=== PATIENT | female | born 1960 | race Hispanic/Latino ===

== ENCOUNTER 2019-01-30 22:23 | Inpatient (IN) | payer BC, OTHER ==
[2019-01-31] MEDS ORDERED: ANTIVERT PO ONE (00:10)
[2019-01-31] MEDS ORDERED: NACL 0.9% 500 ML 500 ML IV ONE (00:10)
[2019-01-31] MEDS ORDERED: REGLAN IV ONE (00:10)
--- NOTE | 2019-01-31 00:17 | Emergency Department Report ---
ED Neuro Deficit HPI - General Chief Complaint: Dizziness Stated Complaint: DIZZINESS/HIGH BP Time Seen by Provider: 01/31/19 00:00 Source: patient, RN notes reviewed Mode of arrival: Ambulatory Limitations: No Limitations - History of Present Illness Initial Comments: Primary care DrSotero: Dr. Alvarado This is a 58-year-old female. The patient is not known to this provider previously. She endorses a history of corneal dysplasia. The patient presents to the emergency room with the complaint of nontraumatic right-sided temporal headache, starting at 9:15 PM, accompanied by sensation of room spinning, constant, which decreases when looking forward, nontraumatic right-sided neck pain, nontraumatic resolve left-sided facial numbness, nontraumatic resolve left arm weakness. The symptoms have been going on since 9:15 p.m. 01/30/2019. The headache is throbbing and aching. The headache is not sudden or thunderclap in nature. The patient states the headache is not the most intense headache of her life. The patient reports no recent chiropractic manipulation, or automotive accident. She denies tinnitus, and denies change in auditory acuity. She currently denies focal extremity weakness, numbness. She reports that her dizziness feels like "vertigo." Location: other Presenting Symptoms: Present: Weak/Paralyzed One Side, Facial Droop/Numbness. Absent: Sudden, Severe Headache, Blurred/Loss of Vision, Unable to Speak Clearly, Altered Mental Status History of same: No Place: home Severity: severe Quality: other Improves With: other Worsens With: other On Anticoagulants: No Context: sudden onset - Related Data Home Medications: Home Medications Medication Instructions Recorded Confirmed Last Taken cycloSPORINE [Restasis] 1 drop OS BID 01/31/19 01/31/19 Unknown Previous Rx's Medication Instructions Recorded Last Taken Type AtorvaSTATin [Lipitor] 40 mg PO QHS #30 tab 02/01/19 Unknown Rx Allergies/Adverse Reactions: Allergies Allergy/AdvReac Type Severity Reaction Status Date / Time morphine Allergy Itching Verified 03/17/15 14:44 NSAIDS (Non-Steroidal Allergy Unknown Verified 03/17/15 14:44 Anti-Inflamma ED Review of Systems ROS: Stated complaint: DIZZINESS/HIGH BP Other details as noted in HPI Constitutional: malaise. denies: fever Eyes: denies: vision change ENT: denies: hearing loss Respiratory: denies: cough Cardiovascular: denies: chest pain Gastrointestinal: nausea Genitourinary: denies: dysuria Musculoskeletal: denies: back pain Neurological: headache, weakness, numbness, paresthesias Psychiatric: anxiety ED Past Medical Hx - Past Medical History Additional medical history: Gastric polyps - Surgical History Hx Cholecystectomy: Yes Additional Surgical History: Right knee micro fx repair. x3. hysterectomy - Social History Smoking Status: Never Smoker Substance Use Type: None - Medications Home Medications: Home Medications Medication Instructions Recorded Confirmed Last Taken Type cycloSPORINE [Restasis] 1 drop OS BID 01/31/19 01/31/19 Unknown History AtorvaSTATin [Lipitor] 40 mg PO QHS #30 tab 02/01/19 Unknown Rx ED Neuro Physical Exam - General Limitations: No Limitations General appearance: alert, in no apparent distress Suspected Stroke: No - Head Head exam: Present: atraumatic, normocephalic - Eye Eye exam: Present: normal appearance, PERRL, EOMI, other (visual acuity intact to finger counting, color perception, reading at a close distance). Absent: nystagmus - ENT ENT exam: Present: normal exam, normal orophraynx, mucous membranes moist, TM's normal bilaterally, normal external ear exam - Neck Neck exam: Present: normal inspection, full ROM. Absent: tenderness, meningismus - Respiratory Respiratory exam: Present: normal lung sounds bilaterally. Absent: respiratory distress - Cardiovascular Cardiovascular Exam: Present: regular rate, normal rhythm, normal heart sounds. Absent: bradycardia, tachycardia, irregular rhythm, systolic murmur, diastolic murmur, rubs, gallop - GI/Abdominal GI/Abdominal exam: Present: soft. Absent: distended, tenderness, guarding, rebound, rigid, pulsatile mass - Extremities Exam Extremities exam: Present: normal inspection, full ROM, other (2+ pulses noted in the bilateral upper, lower extremities. Compartments soft. No long bony tenderness. The pelvis is stable.). Absent: pedal edema, joint swelling, calf tenderness - Back Exam Back exam: Present: normal inspection, full ROM. Absent: tenderness, CVA tenderness (R), CVA tenderness (L), paraspinal tenderness, vertebral tenderness - Neurological Exam Neurological exam: Present: alert, oriented X3, other (Extraocular movements intact. Tongue midline. No facial droop. Facial sensation intact to light touch in the V1, V2, V3 distribution bilaterally. 5 and 5 strength in 4 extremities.. Sensation is intact to light touch in 4 extremities.). Absent: motor sensory deficit - NIHSS Assessment Interval: Baseline 1a. Level of Consciousness: alert/keenly responsive 1b. LOC Questions: answers both correctly 1c. LOC Commands: performs tasks correctly 2. Best Gaze: normal 3. Visual: no visual loss 4. Facial Palsy: normal symmetrical movement 5b. Motor Arm Right: no drift 5a. Motor Arm Left: no drift 6a. Motor Leg Left: no drift 6b. Motor Leg Right: no drift 7. Limb Ataxia: absent 8. Sensory: normal 9. Best Language: no aphasia 10. Dysarthria: normal 11. Extinction/Inattention: no abnormality Total Score: 0 Stroke Severity: No Stroke Symptoms - Psychiatric Psychiatric exam: Present: anxious, flat affect - Skin Skin exam: Present: warm, dry, intact, normal color. Absent: rash ED Course Vital Signs 01/31/19 01/31/19 01/31/19 01:00 01:03 02:00 Temperature 98.2 F Pulse Rate 59 L 57 L 55 L Respiratory 14 16 12 Rate Blood Pressure 153/74 129/65 Blood Pressure 147/69 [Left] O2 Sat by Pulse 97 100 98 Oximetry 01/31/19 03:01 Temperature Pulse Rate 48 L Respiratory 12 Rate Blood Pressure 126/60 Blood Pressure [Left] O2 Sat by Pulse 99 Oximetry - Reevaluation(s) Reevaluation #1: 01/31/19 00:40 Differential diagnosis, including not limited to: Complex migraine, peripheral vestibulopathy, carotid dissection, carotid occlusion, stroke, partial seizure Assessment and plan: 58-year-old female with sensation of room spinning, resolved left arm weakness, resolved left-sided facial numbness, nontraumatic right-sided neck pain, NIH score of 0. Patient will be processed and evaluated as a potential code stroke. Given current NIH score of 0, not a TPA candidate. We have requested emergent neurology consultation, and my colleague, Dr. Eliel Mello is going to evaluate the patient. We will treat the patient's headache with Reglan, and her sensation of vertigo with meclizine. She will be given IV fluids. The patient indicates no issues with renal insufficiency. I had an extensive discussion with the patient. I strongly recommended emergent acquisition of CT angiogram of the head and neck to exclude arterial dissection, and large vessel occlusion. The risks of IV contrast, including contrast nephropathy, need for dialysis, and allergic reaction/anaphylaxis were discussed with the patient, who verbalized understanding. The patient has given verbal consent for acquisition of emergent angiogram. This conversation is witnessed by nurse Lea Gamez Currently, the patient may have an emergent medical or neurologic condition, that requires expedient diagnosis. Currently, CT angiogram is the only available diagnostic modality at this facility to exclude carotid dissection, or large vessel occlusion. Reevaluation #2: 01/31/19 00:44 CT scan of the brain is interpreted by stroke neurology for negative for hemorrhage, acute findings. Patient is currently being interviewed by the stroke neurologist. Reevaluation #3: 01/31/19 01:20 Dr. Eliel Mello indicates patient not a TPA candidate. Angiogram of the head is negative for acute disease. Neck angiogram pending interpretation. Reevaluation #4: 01/31/19 02:14 CT angio head, neck negative for large vessel occlusion, dissection. Patient feels somewhat improved. Endorses that she typically avoids NSAIDs secondary to chronic history of gastric polyps. However, she does not have a true allergic reaction. She is amenable to aspirin and hospitalizations/admission for evaluation for potential stroke versus TIA. Case discussed with Hospital physician, Dr. Beltran, who accepts the patient to her service. - Lab Data Result diagrams: 01/31/19 00:51 01/31/19 00:51 Lab Results 01/31/19 01/31/19 01/31/19 Range/Units 00:16 00:51 00:51 WBC 6.0 (4.5-11.0) K/mm3 RBC 4.11 (3.65-5.03) M/mm3 Hgb 13.0 (10.1-14.3) gm/dl Hct 36.0 (30.3-42.9) % MCV 88 (79-97) fl MCH 32 (28-32) pg MCHC 36 H (30-34) % RDW 13.1 L (13.2-15.2) % Plt Count 203 (140-440) K/mm3 Lymph % (Auto) 26.5 (13.4-35.0) % Rout[place] % (Auto) 7.3 (0.0-7.3) % Eos % (Auto) 1.9 (0.0-4.3) % Baso % (Auto) 0.8 (0.0-1.8) % Lymph # 1.6 (1.2-5.4) K/mm3 [place] # 0.4 (0.0-0.8) K/mm3 Eos # 0.1 (0.0-0.4) K/mm3 Baso # 0.0 (0.0-0.1) K/mm3 Seg Neutrophils % 63.5 (40.0-70.0) % Seg Neutrophils # 3.8 (1.8-7.7) K/mm3 PT 13.2 (12.2-14.9) Sec. INR 0.95 (0.87-1.13) APTT 28.2 (24.2-36.6) Sec. Thrombin Time 17.4 (15.1-19.6) Sec. Sodium (137-145) mmol/L Potassium (3.6-5.0) mmol/L Chloride (98-107) mmol/L Carbon Dioxide (22-30) mmol/L Anion Gap mmol/L BUN (7-17) mg/dL Creatinine (0.7-1.2) mg/dL Estimated GFR ml/min BUN/Creatinine Ratio % Glucose (65-100) mg/dL POC Glucose 140 H (70-105) Calcium (8.4-10.2) mg/dL Total Bilirubin (0.1-1.2) mg/dL AST (5-40) units/L ALT (7-56) units/L Alkaline Phosphatase (35-129) units/L Total Creatine Kinase (30-135) units/L CK-MB (CK-2) (0.0-4.0) ng/mL CK-MB (CK-2) Rel Index (0-4) Troponin T (0.00-0.029) ng/mL Total Protein (6.3-8.2) g/dL Albumin (3.9-5) g/dL Albumin/Globulin Ratio % 01/31/19 Range/Units 00:51 WBC (4.5-11.0) K/mm3 RBC (3.65-5.03) M/mm3 Hgb (10.1-14.3) gm/dl Hct (30.3-42.9) % MCV (79-97) fl MCH (28-32) pg MCHC (30-34) % RDW (13.2-15.2) % Plt Count (140-440) K/mm3 Lymph % (Auto) (13.4-35.0) % [place] % (Auto) (0.0-7.3) % Eos % (Auto) (0.0-4.3) % Baso % (Auto) (0.0-1.8) % Lymph # (1.2-5.4) K/mm3 [place] # (0.0-0.8) K/mm3 Eos # (0.0-0.4) K/mm3 Baso # (0.0-0.1) K/mm3 Seg Neutrophils % (40.0-70.0) % Seg Neutrophils # (1.8-7.7) K/mm3 PT (12.2-14.9) Sec. INR (0.87-1.13) APTT (24.2-36.6) Sec. Thrombin Time (15.1-19.6) Sec. Sodium 138 (137-145) mmol/L Potassium 3.7 (3.6-5.0) mmol/L Chloride 99.5 (98-107) mmol/L Carbon Dioxide 25 (22-30) mmol/L Anion Gap 17 mmol/L BUN 15 (7-17) mg/dL Creatinine 0.7 (0.7-1.2) mg/dL Estimated GFR > 60 ml/min BUN/Creatinine Ratio 21 % Glucose 144 H (65-100) mg/dL POC Glucose (70-105) Calcium 9.4 (8.4-10.2) mg/dL Total Bilirubin 0.50 (0.1-1.2) mg/dL AST 21 (5-40) units/L ALT 23 (7-56) units/L Alkaline Phosphatase 61 (35-129) units/L Total Creatine Kinase 92 (30-135) units/L CK-MB (CK-2) 2.3 (0.0-4.0) ng/mL CK-MB (CK-2) Rel Index 2.5 (0-4) Troponin T < 0.010 (0.00-0.029) ng/mL Total Protein 6.9 (6.3-8.2) g/dL Albumin 4.2 (3.9-5) g/dL Albumin/Globulin Ratio 1.6 % - EKG Data -: EKG Interpreted by Me EKG shows normal: sinus rhythm Rate: normal When compared to previous EKG there are: previous EKG unavailable 01/31/19 01:56 This is a sinus rhythm, 61 bpm, normal axis, QTC prolonged, T-wave inversion V2, nonspecific ST depression V2, V3, V4, V5, not having chest pain, abnormal EKG, no prior for comparison, not consistent with ST elevation myocardial infarction. - Radiology Data Radiology results: report reviewed, image reviewed CT angiogram head negative for acute disease. CT head negative for acute disease. CT neck: - Core Measures Measure Exclusions: not indicated - Thrombolytic Inclusion/Exclusion Thrombolytic Exclusion Criteria: Symptom Onset > 3 Hours Thrombolytic Contraindications: Rapidily Improving s/s Critical care attestation.: If time is entered above; I have spent that time in minutes in the direct care o f this critically ill patient, excluding procedure time. ED Disposition Clinical Impression: TIA (transient ischemic attack) Disposition: - OP ADMIT IP TO THIS HOSP Is pt being admited?: Yes Does the pt Need Aspirin: Yes Condition: Fair
--- NOTE | 2019-01-31 00:59 | Cat Scan Report ---
PROCEDURE: CT ANGIO HEAD TECHNIQUE: Computerized tomographic angiography of the head was performed after the IV injection of iodinated nonionic contrast including image processing. The image data was postprocessed using 2-dim ensional multiplanar reformatted (MPR) and 3-dimensional (MIP and/or volume rendered) techniques. HISTORY: stroke sx COMPARISONS: None . FINDINGS: Cerebrum: No evidence of hemorrhage, acute ischemia or mass . Cerebellum: No evidence of hemorrhage, acute ischemia or mass . Subarachnoid spaces and ventricles: Normal . Intracranial vessels: Carotid siphon: Normal . Anterior cerebral: Normal . Middle cerebral: Normal . Posterior cerebral: Normal . Vertebral arteries including basilar: Normal . Aneurysms: None . Dural sinuses: Normal. IMPRESSION: Normal Examination . This document is electronically signed by Elena Gonazlez DO., Jan 31 2019 12:57:53 AM ET
[2019-01-31 01:07] LABS: Basophils % (Auto) 0.8 % (0.0-1.8); Eosinophils # (Auto) 0.1 K/mm3 (0.0-0.4); Eosinophils % (Auto) 1.9 % (0.0-4.3); Lymphocytes # (Auto) 1.6 K/mm3 (1.2-5.4); Lymphocytes % (Auto) 26.5 % (13.4-35.0); Mean Corpuscular HGB Conc 36 % (30-34); Mean Corpuscular Volume 88 fl (79-97); Monocytes # (Auto) 0.4 K/mm3 (0.0-0.8); Monocytes % (Auto) 7.3 % (0.0-7.3); Platelet Count 203 K/mm3 (140-440); Red Blood Count 4.11 M/mm3 (3.65-5.03); Red Cell Distribution Width 13.1 % (13.2-15.2)
[2019-01-31 01:19] LABS: INR 0.95 (0.87-1.13)
[2019-01-31 01:20] LABS: Partial Thromboplastin Time 28.2 Sec. (24.2-36.6); Thrombin Time 17.4 Sec. (15.1-19.6)
[2019-01-31 01:22] LABS: Creatine Kinase MB 2.3 ng/mL (0.0-4.0)
[2019-01-31 01:23] LABS: Alanine Aminotransferase 23 units/L (7-56); Albumin 4.2 g/dL (3.9-5); BUN/Creatinine Ratio 21; Blood Urea Nitrogen 15 mg/dL (7-17); Calcium 9.4 mg/dL (8.4-10.2); Hemolysis Index 7
--- NOTE | 2019-01-31 01:37 | Emergency Department Report ---
ED Syncope HPI - General Chief Complaint: Dizziness Stated Complaint: DIZZINESS/HIGH BP Time Seen by Provider: 01/31/19 00:00 - History of Present Illness Initial Comments: [facility] Tele[facility]urology Consult Services Impression: Stroke: #1. Room Spinning - Vestibular #2. CTA H/N is negative. #3. Vestibular, but no ataxia, at this moment NIHSS is 0 without deficits so no tPA - Meclizine, MRI in AM, Neuro checks, if things worsen in NIHSS then please call [facility] again. Differential Diagnosis: 1. Cardioembolic stroke 2. Small vessel disease/lacune 3. Thromboembolic, pvodda-rb-kieigr mechanism 4. Hypercoagulable state-related infarct 5. Transient ischemic attack 6. Thrombotic mechanism, large artery disease Comments: [facility] contacted: 22:59 [facility] at bedside: 22:61 NIHSS assessment time: same Recommendations: inpatient neurology consultation Inpatient stroke evaluation as per Neurology/ Internal Medicine Discussed with ED MD CC History of Present Illness 58 yeaer old with left sided facial numbness, and left sided weakness, with dizziness with constant room spinning at 915 pm, and right sided headache and NIHSS is 0. cT head is negative. She states that when her head moves the room spins, and then it stops. Diagnostic: CT scan is negative and look for LVO, CTA H/N is negative. Exam: NIHSS score: 0 LOC - alertness - 0 LOC - Questions - 0 LOC- COmmands - 0 Horizontal Gaze - 0 Visual George - 0 Facial Droop - 0 Upper Extremities Lower Extremities Dysartrhia Aphasia Ataxia Sensory Extinction Medical Decision Making: - Extensive number of diagnosis or management options are considered above. - Extensive amount of complex data reviewed. - High risk of complication and/or morbidity or mortality are associated with differential diagnostic considerations above. - There may be Uncertain outcome and increased probability of prolonged functional impairment or high probability of severe prolonged functional impairment associated with some of these differential diagnosis. Medical Data Reviewed: 1.Data reviewed include clinical labs, radiology, Medical Tests; 2.Tests results discussed w/performing or interpreting physician; 3.Obtaining/reviewing old medical records; 4.Obtaining case history from another source; 5.Independent review of image, tracing or specimen. Patient was informed the Neurology Consult would happen via telehealth (remote video) and consented to receiving care in this manner. - Related Data Allergies/Adverse Reactions: Allergies morphine Allergy (Verified 03/17/15 14:44) Itching NSAIDS (Non-Steroidal Anti-Inflamma Allergy (Verified 03/17/15 14:44) Unknown NO Oral NSAIDS due to gastric polyps Home Medications: Ambulatory Orders Calcium Citrate/Vitamin D3 [Calcitrate + Vit D Caplet] 1 each PO DAILY 03/17/15 Cetirizine HCl [ZyrTEC] 10 mg PO DAILY 03/17/15 HYDROcodone/APAP 5-325 [[place] 5/325] 1 each PO Q6HR PRN #12 tablet 03/17/15 ED Review of Systems ROS: Stated complaint: DIZZINESS/HIGH BP Other details as noted in HPI Constitutional: malaise. denies: fever Eyes: denies: vision change ENT: denies: hearing loss Respiratory: denies: cough Cardiovascular: denies: chest pain Gastrointestinal: nausea Genitourinary: denies: dysuria Musculoskeletal: denies: back pain Neurological: headache, weakness, numbness, paresthesias Psychiatric: anxiety ED Past Medical Hx - Past Medical History Previous Medical History?: Yes Additional medical history: Gastric polyps - Surgical History Past Surgical History?: Yes Hx Cholecystectomy: Yes Additional Surgical History: Right knee micro fx repair. x3. hysterectomy - Social History Smoking Status: Never Smoker Substance Use Type: None - Medications Home Medications: Home Medications Medication Instructions Recorded Confirmed Last Taken Type Calcium Citrate/Vitamin D3 1 each PO DAILY 03/17/15 03/17/15 03/17/15 History [Calcitrate + Vit D Caplet] Cetirizine HCl [ZyrTEC] 10 mg PO DAILY 03/17/15 03/17/15 03/17/15 History HYDROcodone/APAP 5-325 [[place] 1 each PO Q6HR PRN #12 tablet 03/17/15 Unknown Rx 5/325] ED Physical Exam - General Limitations: No Limitations General appearance: alert, in no apparent distress ED Course Vital Signs 01/31/19 01:03 Temperature 98.2 F Pulse Rate 57 L Respiratory 16 Rate Blood Pressure 147/69 [Left] O2 Sat by Pulse 100 Oximetry ED Medical Decision Making - Lab Data Result diagrams: 01/31/19 00:51 01/31/19 00:51 Critical care attestation.: If time is entered above; I have spent that time in minutes in the direct care of this critically ill patient, excluding procedure time. ED Disposition Clinical Impression: TIA (transient ischemic attack) Condition: Stable Referrals: JOSE MANUEL MCRAE MD [Primary Care Provider] - 3-5 Days
--- NOTE | 2019-01-31 02:05 | Cat Scan Report ---
PROCEDURE: CT ANGIO NECK TECHNIQUE: Computerized tomographic angiography of the neck was performed after the IV injection of iodinated nonionic contrast including image processing. The image data was postprocessed using 2-dime nsional multiplanar reformatted (MPR) and 3-dimensional (MIP and/or volume rendered) techniques. HISTORY: stroke sx COMPARISONS: None . Note: Assessment of carotid artery stenosis is based on measurement of the distal internal carotid a rtery diameter as the denominator for stenosis calculations and the [place] Symptomatic Caroti d Endarterectomy Trial (NASCET) stenosis criteria. FINDINGS: Sinuses: Normal . Non vascular cervical structures: No significant abnormality . Aortic arch: Normal . Right carotid artery: Normal . Left carotid artery: Normal . Vertebral arteries: Normal . IMPRESSION: Normal Examination . This document is electronically signed by Elena Gonzalez DO., Jan 31 2019 02:03:12 AM ET
[2019-01-31] MEDS ORDERED: BABY ASPIRIN PO ONE (02:16)
[2019-01-31] MEDS ORDERED: ZOFRAN IV PRN ×2 (02:54)
[2019-01-31] MEDS ORDERED: SODIUM CHLORIDE FLUSH SYRINGE 10 ML IV PRN (02:54)
[2019-01-31] MEDS ORDERED: TYLENOL PO PRN ×2 (02:54)
[2019-01-31] MEDS ORDERED: NORCO 5/325 PO PRN (02:54)
[2019-01-31] MEDS ORDERED: SODIUM CHLORIDE FLUSH SYRINGE 10 ML INJ PRN (02:54)
--- NOTE | 2019-01-31 03:23 | History and Physical Report ---
<AMINTA DE LEON - Last Filed: 01/31/19 03:55> History of Present Illness Date of examination: 01/31/19 Date of admission: 01/31/2019 Chief complaint: Headache, and dizziness History of present illness: 58-year-old female with history of vertigo and corneal dysplasia presents to [facility] ED with complaints of headache and dizziness. Patient states that she was at home with her family, when she started to feel "like something wasn't right "and decided to sit down and relax moment. She started to experience a right- sided temporal headache accompanied with nausea and vertigo. Shortly after her left upper extremity became numb and started to tingle, and the left side of mouth was also numb. She describes her headache as throbbing and aching and rates her pain as 5/10. Aggravating factors include light sensitivity and movement, and is relieved by resting in dark room. Denies auditory disturbances, sinus pressure, emesis, or chest pain. Past History Past Medical History: other (gastric polyps) Past Surgical History: cholecystectomy, (3), hysterectomy, Other (Right knee micro fx repair. ) Medications and Allergies Allergies Allergy/AdvReac Type Severity Reaction Status Date / Time morphine Allergy Itching Verified 03/17/15 14:44 NSAIDS (Non-Steroidal Allergy Unknown Verified 03/17/15 14:44 Anti-Inflamma Home Medications Medication Instructions Recorded Confirmed Last Taken Type cycloSPORINE [Restasis] 1 drop OS BID 01/31/19 01/31/19 Unknown History Active Meds: Active Medications Acetaminophen (Tylenol) 650 mg PO Q4H PRN PRN Reason: Pain, Mild (1-3) Acetaminophen/Hydrocodone Bitart ([place] 5/325) 2 each PO Q6H PRN PRN Reason: Pain, Moderate (4-6) Clopidogrel Bisulfate (Plavix) 75 mg PO QDAY REGINA Enoxaparin Sodium (Lovenox) 30 mg SUB-Q QDAY REGINA Ondansetron HCl (Zofran) 4 mg IV Q8H PRN PRN Reason: Nausea And Vomiting Pravastatin Sodium (Pravachol) 40 mg PO QHS REGINA Sodium Chloride (Sodium Chloride Flush Syringe 10 Ml) 10 ml IV BID REGINA Sodium Chloride (Sodium Chloride Flush Syringe 10 Ml) 10 ml IV PRN PRN PRN Reason: LINE FLUSH Review of Systems All systems: negative (reviewed and no additional remarkable complaints except as noted below) Cardiovascular: lightheadedness, high blood pressure Neurological: numbness (left upper extremity), tingling (left upper extremity), vertigo, headaches Exam - Physical Exam Narrative exam: Physical exam General appearance: Present: No acute distress, pleasant, well-nourished, looks stated age - EENT Eyes: Present: PERRL, EOM intact ENT: hearing intact, normal- Neck Neck: Present: supple, normal ROM - Respiratory Respiratory effort: Non-labored Respiratory: bilateral: Clear throughout - Cardiovascular Heart rate: 61 (bpm) Rhythm: regular Heart Sounds: Present: S1 & S2. Absent: rub, click - Extremities Extremities: no ischemia, pulses intact, - Peripheral Assessment Peripheral Pulses: within normal limits - Abdominal General gastrointestinal: soft, non-tender, normal bowel sounds - Integumentary Integumentary: Present: warm, dry - Musculoskeletal Musculoskeletal: Able to move all extremities - Psychiatric Psychiatric: cooperative - Constitutional Vitals: Temp Pulse Resp BP Pulse Ox 98.2 F 55 L 12 129/65 98 01/31/19 01:03 01/31/19 02:00 01/31/19 02:00 01/31/19 02:00 01/31/19 02:00 Results - Labs CBC & Chem 7: 01/31/19 00:51 01/31/19 00:51 Labs: Laboratory Last Values WBC 6.0 K/mm3 (4.5-11.0) 01/31/19 00:51 RBC 4.11 M/mm3 (3.65-5.03) 01/31/19 00:51 Hgb 13.0 gm/dl (10.1-14.3) 01/31/19 00:51 Hct 36.0 % (30.3-42.9) 01/31/19 00:51 MCV 88 fl (79-97) 01/31/19 00:51 MCH 32 pg (28-32) 01/31/19 00:51 MCHC 36 % (30-34) H 01/31/19 00:51 RDW 13.1 % (13.2-15.2) L 01/31/19 00:51 Plt Count 203 K/mm3 (140-440) 01/31/19 00:51 Lymph % (Auto) 26.5 % (13.4-35.0) 01/31/19 00:51 [place] % (Auto) 7.3 % (0.0-7.3) 01/31/19 00:51 Eos % (Auto) 1.9 % (0.0-4.3) 01/31/19 00:51 Baso % (Auto) 0.8 % (0.0-1.8) 01/31/19 00:51 Lymph # 1.6 K/mm3 (1.2-5.4) 01/31/19 00:51 [place] # 0.4 K/mm3 (0.0-0.8) 01/31/19 00:51 Eos # 0.1 K/mm3 (0.0-0.4) 01/31/19 00:51 Baso # 0.0 K/mm3 (0.0-0.1) 01/31/19 00:51 Seg Neutrophils % 63.5 % (40.0-70.0) 01/31/19 00:51 Seg Neutrophils # 3.8 K/mm3 (1.8-7.7) 01/31/19 00:51 PT 13.2 Sec. (12.2-14.9) 01/31/19 00:51 INR 0.95 (0.87-1.13) 01/31/19 00:51 APTT 28.2 Sec. (24.2-36.6) 01/31/19 00:51 17.4 Sec. (15.1-19.6) 01/31/19 00:51 Sodium 138 mmol/L (137-145) 01/31/19 00:51 Potassium 3.7 mmol/L (3.6-5.0) 01/31/19 00:51 Chloride 99.5 mmol/L (98-107) 01/31/19 00:51 Carbon Dioxide 25 mmol/L (22-30) 01/31/19 00:51 17 mmol/L 01/31/19 00:51 BUN 15 mg/dL (7-17) 01/31/19 00:51 0.7 mg/dL (0.7-1.2) 05 00:51 Estimated GFR > 60 ml/min 01/31/19 00:51 21 % 01/31/19 00:51 Glucose 144 mg/dL (65-100) H 01/31/19 00:51 POC Glucose 140 (70-105) H 01/31/19 00:16 Calcium 9.4 mg/dL (8.4-10.2) 01/31/19 00:51 0.50 mg/dL (0.1-1.2) 01/31/19 00:51 AST 21 units/L (5-40) 01/31/19 00:51 ALT 23 units/L (7-56) 01/31/19 00:51 61 units/L (35-129) 01/31/19 00:51 92 units/L (30-135) 01/31/19 00:51 CK-MB (CK-2) 2.3 ng/mL (0.0-4.0) 01/31/19 00:51 CK-MB (CK-2) Rel Index 2.5 (0-4) 01/31/19 00:51 < 0.010 ng/mL (0.00-0.029) 01/31/19 00:51 6.9 g/dL (6.3-8.2) 01/31/19 00:51 4.2 g/dL (3.9-5) 01/31/19 00:51 1.6 % 01/31/19 00:51 Short CBC 01/31/19 Range/Units 00:51 WBC 6.0 (4.5-11.0) K/mm3 Hgb 13.0 (10.1-14.3) gm/dl Hct 36.0 (30.3-42.9) % Plt Count 203 (140-440) K/mm3 BMP 01/31/19 00:51 Sodium 138 Potassium 3.7 Chloride 99.5 Carbon Dioxide 25 BUN 15 Creatinine 0.7 Glucose 144 H Calcium 9.4 Cardiac Enzymes 01/31/19 Range/Units 00:51 Total Creatine Kinase 92 (30-135) units/L CK-MB (CK-2) 2.3 (0.0-4.0) ng/mL Troponin T < 0.010 (0.00-0.029) ng/mL Liver Function 01/31/19 Range/Units 00:51 Total Bilirubin 0.50 (0.1-1.2) mg/dL AST 21 (5-40) units/L ALT 23 (7-56) units/L Alkaline Phosphatase 61 (35-129) units/L Albumin 4.2 (3.9-5) g/dL - Imaging and Cardiology EKG: image reviewed (SR 61 bpm, unrevealing for acute ischemic abnormalities) CT Scan - head: report reviewed, image reviewed, other (CTA Neck: unrevealing for acute abnormalities. Normal Examination; CTA Head: unrevealing for large vessel occlusion, dissection. Normal Examination ) Assessment and Plan Assessment and plan: 58-year-old female with history of vertigo and corneal dysplasia presents to [facility] ED with complaints of headache and dizziness. Pt was found to be hypertensive with initial BP of 153/74. At the time of my examination pt states that her symptoms are resolved with exception to mild headache. Telespecialist Neurology was consulted for urgent evaluation. CTA Neck and CTA Head were negative, and as a result she is not a candidate for TPA. Will admit to Telemetry floor. TIA Elevated BG 144 history of corneal dysplasia Hypertension Plan: Continue supportive care Continuous telemetry monitoring Q2hrs Neuro Checks MRI/MRA Head pending Echo pending HgbA1c pending Lipid panel pending Monitor BP Start Plavix (no aspirin d/t allergy) Neurology consult pending DVT PPX SCD's and Lovenox Advance Directives: No VTE prophylaxis?: Chemical Plan of care discussed with patient/family: Yes <TEE STEEN - Last Filed: 01/31/19 05:48> History of Present Illness Date of admission: 01/31/19 02:54 Medications and Allergies Active Meds: Active Medications Acetaminophen (Tylenol) 650 mg PO Q4H PRN PRN Reason: Pain, Mild (1-3) Acetaminophen/Hydrocodone Bitart ([place] 5/325) 2 each PO Q6H PRN PRN Reason: Pain, Moderate (4-6) Clopidogrel Bisulfate (Plavix) 75 mg PO QDAY REGINA Enoxaparin Sodium (Lovenox) 40 mg SUB-Q QDAY@1000 REGINA Ondansetron HCl (Zofran) 4 mg IV Q8H PRN PRN Reason: Nausea And Vomiting Last Admin: 01/31/19 04:44 Dose: 4 mg Documented by: Pravastatin Sodium (Pravachol) 40 mg PO QHS REGINA Sodium Chloride (Sodium Chloride Flush Syringe 10 Ml) 10 ml IV BID REGINA Sodium Chloride (Sodium Chloride Flush Syringe 10 Ml) 10 ml IV PRN PRN PRN Reason: LINE FLUSH Exam - Constitutional Vitals: Temp Pulse Resp BP Pulse Ox 98.2 F 54 L 12 126/60 99 01/31/19 01:03 01/31/19 04:47 01/31/19 03:01 01/31/19 03:01 01/31/19 03:01 Results - Labs CBC & Chem 7: 01/31/19 00:51 01/31/19 00:51 Labs: Laboratory Last Values WBC 6.0 K/mm3 (4.5-11.0) 01/31/19 00:51 RBC 4.11 M/mm3 (3.65-5.03) 01/31/19 00:51 Hgb 13.0 gm/dl (10.1-14.3) 01/31/19 00:51 Hct 36.0 % (30.3-42.9) 01/31/19 00:51 MCV 88 fl (79-97) 01/31/19 00:51 MCH 32 pg (28-32) 01/31/19 00:51 MCHC 36 % (30-34) H 01/31/19 00:51 RDW 13.1 % (13.2-15.2) L 01/31/19 00:51 Plt Count 203 K/mm3 (140-440) 01/31/19 00:51 Lymph % (Auto) 26.5 % (13.4-35.0) 01/31/19 00:51 [place] % (Auto) 7.3 % (0.0-7.3) 01/31/19 00:51 Eos % (Auto) 1.9 % (0.0-4.3) 01/31/19 00:51 Baso % (Auto) 0.8 % (0.0-1.8) 01/31/19 00:51 Lymph # 1.6 K/mm3 (1.2-5.4) 01/31/19 00:51 [place] # 0.4 K/mm3 (0.0-0.8) 01/31/19 00:51 Eos # 0.1 K/mm3 (0.0-0.4) 01/31/19 00:51 Baso # 0.0 K/mm3 (0.0-0.1) 01/31/19 00:51 Seg Neutrophils % 63.5 % (40.0-70.0) 01/31/19 00:51 Seg Neutrophils # 3.8 K/mm3 (1.8-7.7) 01/31/19 00:51 PT 13.2 Sec. (12.2-14.9) 01/31/19 00:51 INR 0.95 (0.87-1.13) 01/31/19 00:51 APTT 28.2 Sec. (24.2-36.6) 01/31/19 00:51 17.4 Sec. (15.1-19.6) 01/31/19 00:51 Sodium 138 mmol/L (137-145) 01/31/19 00:51 Potassium 3.7 mmol/L (3.6-5.0) 01/31/19 00:51 Chloride 99.5 mmol/L (98-107) 01/31/19 00:51 Carbon Dioxide 25 mmol/L (22-30) 01/31/19 00:51 17 mmol/L 01/31/19 00:51 BUN 15 mg/dL (7-17) 01/31/19 00:51 0.7 mg/dL (0.7-1.2) 01/31/19 00:51 Estimated GFR > 60 ml/min 01/31/19 00:51 21 % 01/31/19 00:51 Glucose 144 mg/dL (65-100) H 01/31/19 00:51 POC Glucose 140 (70-105) H 01/31/19 00:16 Calcium 9.4 mg/dL (8.4-10.2) 01/31/19 00:51 0.50 mg/dL (0.1-1.2) 01/31/19 00:51 AST 21 units/L (5-40) 01/31/19 00:51 ALT 23 units/L (7-56) 01/31/19 00:51 61 units/L (35-129) 01/31/19 00:51 92 units/L (30-135) 01/31/19 00:51 CK-MB (CK-2) 2.3 ng/mL (0.0-4.0) 01/31/19 00:51 CK-MB (CK-2) Rel Index 2.5 (0-4) 01/31/19 00:51 < 0.010 ng/mL (0.00-0.029) 01/31/19 00:51 6.9 g/dL (6.3-8.2) 01/31/19 00:51 4.2 g/dL (3.9-5) 01/31/19 00:51 1.6 % 01/31/19 00:51 Assessment and Plan Assessment and plan: 58 year old woman with vertigo, corneal dysplasia complain of left forearm, lower mouth numbness and right side headche. Symptoms lasted for 45 minutes, agree with TIA workup
--- NOTE | 2019-01-31 07:57 | Progress Note ---
Subjective Date of service: 01/31/19 Interval history: went over the ED note and the presenting cc was left arm numbness and facial numbness on the left there is hx of corneal " dysplasia" initial imaging studies were all checked by me and are normal the MRI will be essential study to assess Objective - Vital Sign Vital Signs - 12hr 01/31/19 01/31/19 01/31/19 01:00 01:03 02:00 Temperature 98.2 F Pulse Rate 59 L 57 L 55 L Respiratory 14 16 12 Rate Blood Pressure 153/74 129/65 Blood Pressure 147/69 [Left] O2 Sat by Pulse 97 100 98 Oximetry 01/31/19 01/31/19 01/31/19 03:01 04:47 06:01 Temperature 98.2 F Pulse Rate 48 L 54 L 54 L Respiratory 12 20 Rate Blood Pressure 126/60 124/61 Blood Pressure [Left] O2 Sat by Pulse 99 97 Oximetry - Laboratory Findings CBC and BMP: 01/31/19 00:51 01/31/19 00:51 Abnormal Lab Findings: Abnormal Labs 01/31/19 01/31/19 01/31/19 00:16 00:51 00:51 MCHC 36 H RDW 13.1 L Glucose 144 H POC Glucose 140 H
[2019-01-31] MEDS ORDERED: LOVENOX SUB-Q SCH (10:00)
[2019-01-31] MEDS: LOVENOX SUB-Q SCH (11:16)
[2019-01-31] MEDS: PLAVIX PO SCH (11:17)
[2019-01-31] MEDS: SODIUM CHLORIDE FLUSH SYRINGE 10 ML IV SCH ×3 (11:17→21:01)
--- NOTE | 2019-01-31 12:52 | Event Note ---
Date: 01/31/19 Patient is 58 yo presented with headache and tingling and numbness left upper ext. I have seen and examined her.For MRI brain to rule out stroke.
--- NOTE | 2019-01-31 21:17 | Consultation ---
HISTORY OF PRESENT ILLNESS: This is a 58-year-old female that presents to [facility] with onset of severe headache, some right visual blurring, and then left facial numbness involving arm and face, and presented with history of a slight headache over the right side. She was admitted, had a CT scan, CTA of the neck and head. Review of these studies by myself revealed no focal abnormalities. No vascular problems. The patient in the intervals had some nausea, some vertigo, has a history of hypertension, also history of laboratory of diabetes with slight elevation of blood sugar of 144. PHYSICAL EXAMINATION: VITAL SIGNS: Since admission, blood pressure was 126/60, pulse rate is in the range of 55-57, pO2 on room air was 99%. NEUROLOGIC: Cranial nerves intact. No tremor, no asterixis. Examination of the strength is good. Ocular movements are normal. No nystagmus present. No facial asymmetry is noted. No sensory loss in the face is present. Hand and arm movements are good. She is fully alert, conscious, does not have any signs of meningismus. IMPRESSION AND PLAN: This patient's symptoms are currently clearing. I did understand from her history that she had a slight elevation in blood pressure when the attack occurred. It seems at this point much better. I have gone over the notes from the Emergency Department as well as reviewed the CAT scan of the brain, which is normal to my view. There is history of corneal dysplasia which I am not sure the etiology of and is in the right eye. I do not see any obvious features within the CT scan at present that would explain this process. The CT of the brain is entirely within normal limits for the patient's age. I see no evidence of any mae white matter abnormalities. Careful view of the sinuses did not reveal any abnormalities in the sinuses either or any bony structural abnormalities in the cranium. I will await the MRI scan of the brain, this may simply be related to the issues of hypertension. I do note the patient has allergies to NONSTEROIDAL ANTI-INFLAMMATORY AGENTS. The differential specifically does not show any increased number of eosinophils, which might explain some of the problem. I plan to follow the patient. We will get with an MRI scan of the brain and carotid artery ultrasound. JOB# [id number] TIFFANY/NTS
[2019-01-31] MEDS ORDERED: PRAVACHOL PO SCH (22:00)
[2019-02-01 06:38] LABS: Chol/HDL Ratio 4.36 %
--- NOTE | 2019-02-01 08:05 | Progress Note ---
Subjective Date of service: 02/01/19 Interval history: sed rate 14 and ECHO to my read is entirely normal pending results of the MRI can go home suspect TIA vs migraine work up so far negative see consult Objective - Vital Sign Vital Signs - 12hr 01/31/19 01/31/19 02/01/19 23:45 23:51 04:07 Temperature 97.7 F 97.4 F L Pulse Rate 60 62 55 L Respiratory 16 16 Rate Blood Pressure 100/62 113/62 O2 Sat by Pulse 95 95 Oximetry 02/01/19 04:12 Temperature 97.9 F Pulse Rate 63 Respiratory 16 Rate Blood Pressure 153/82 O2 Sat by Pulse 95 Oximetry - Laboratory Findings CBC and BMP: 01/31/19 00:51 01/31/19 00:51 Abnormal Lab Findings: Abnormal Labs 01/31/19 01/31/19 01/31/19 00:16 00:51 00:51 MCHC 36 H RDW 13.1 L Glucose 144 H POC Glucose 140 H LDL Cholesterol Direct 02/01/19 04:33 MCHC RDW Glucose POC Glucose LDL Cholesterol Direct 135 H
--- NOTE | 2019-02-01 10:33 | Magnetic Resonance Report ---
MRI scan of brain: History: TIA. Technique: Multiplanar, multisequence images were obtained without contrast injection. Findings: No evidence of restricted diffusion. Ventricles are normal in size and midline in location. No evidence of acute ischemia, hemorrhage or mass. No extra-axial fluid collection. Normal brainstem and cerebellum. Normal sinuses and mastoid air cells. Impression: No acute intracranial abnormality.
--- NOTE | 2019-02-01 10:36 | Magnetic Resonance Report ---
MRA of the brain: History: Stroke. Findings: The vessels of [place] are widely patent. No evidence of aneurysm stenoses or dissection. Codominant vertebral arteries with normal basilar artery. 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 Nonvisualized left posterior communicating artery. Normal left posterior cerebral artery. Impression: No definite stenoses ,aneurysm or occlusion at [place].
[2019-02-01] MEDS: PLAVIX PO SCH (10:39)
[2019-02-01] MEDS: LOVENOX SUB-Q SCH (10:40)
[2019-02-01] MEDS: SODIUM CHLORIDE FLUSH SYRINGE 10 ML IV SCH (10:42)
[2019-02-01 12:43] VITALS: BP 131/68
--- NOTE | 2019-02-01 14:06 | Cat Scan Report ---
PROCEDURE: CT HEAD/BRAIN WO CON TECHNIQUE: Computerized tomography of the head was performed without contrast material. HISTORY: Stroke symptoms COMPARISONS: August 21, 2010 . FINDINGS: Skull and scalp: Normal . Paranasal sinuses: Normal . Ventricles and subarachnoid spaces: Normal . Cerebrum: No evidence of hemorrhage, acute infarction or mass . Cerebellum and brainstem: No evidence of hemorrhage, acute infarction or mass . Vasculature: Normal . Other: None . ASPECTS: 10 IMPRESSION: There is no evidence of an acute intracranial process . This document is electronically signed by Elena Gonzalez DO., Jan 31 2019 12:41:36 AM ET
--- NOTE | 2019-02-01 15:08 | Discharge Summary ---
Providers - Providers Date of Admission: 01/31/19 02:54 Date of discharge: 02/01/19 Attending physician: RAJNI STEPHEN 01/31/19 Consult to Physician [CONS] Routine Comment: Consulting Provider: VAIBHAV ROGER Physician Instructions: Reason For Exam: TIA Consult to Physician [CONS] Stat Comment: Consulting Provider: TRUMAN PACHECO Physician Instructions: Reason For Exam: suspected stroke 01/31/19 02:55 Occupational Therapy Evaluate and Treat [CONS] Routine Comment: Reason For Exam: Neuro deficits Physical Therapy Evaluation and Treat [CONS] Routine Comment: Reason For Exam: Neuro deficits Primary care physician: JOSE MANUEL MCRAE Hospitalization Condition: Fair Hospital course: 58-year-old female with history of vertigo and corneal dysplasia presented to [facility] ED with complaints of headache and dizziness. Patient was found to be hypertensive with initial BP of 153/74. Tele Neurology was consulted for urgent evaluation. CTA Neck and CTA Head were negative, and as a result she is not a candidate for TPA. She was to admit to floor. MRI brain was negative. She was evaluated by neurologist. Final diagnosis is complicated migraine. She does not have stool. Patient found to have elevated LDL and started on a statin. BP was elevated and she was asked to follow this with her primary care physician. Disposition: TO HOME OR SELFCARE - Discharge Diagnoses (1) Complicated migraine Status: Acute (2) Hyperlipidemia Status: Acute (3) Elevated blood pressure reading Status: Acute (4) Elevated blood pressure reading without diagnosis of hypertension Status: Acute Core Measure Documentation - Palliative Care Palliative Care/ Comfort Measures: Not Applicable - Core Measures Any of the following diagnoses?: none Exam - Constitutional Vitals: Temp Pulse Resp BP Pulse Ox 97.4 F L 60 18 131/68 95 02/01/19 12:43 02/01/19 12:41 02/01/19 12:41 02/01/19 12:41 02/01/19 12:41 Plan Activity: no restrictions Diet: low fat, low cholesterol, low salt Additional Instructions: 1.Follow up with PCP in 1 week. 2.Follow up with Neurology in 1 week Follow up with: JOSE MANUEL MCRAE MD [Primary Care Provider] - 7 Days Prescriptions: AtorvaSTATin [Lipitor] 40 mg PO QHS #30 tab
== END 2019-02-01 17:10 | disposition home or self-care (01) | DRG 103 ==
LOC: EEVIPCON 22:23 → ED 22:23 → 4A 01-31 02:54
PROVIDERS: ADMIT Internal Medicine; ATTEND Internal Medicine
DX: G43.109 Migraine with aura, not intractable, without status migrainosus (principal); G45.9 Transient cerebral ischemic attack, unspecified; I10 Essential (primary) hypertension; Z90.49 Acquired absence of other specified parts of digestive tract; Z90.710 Acquired absence of both cervix and uterus; Z88.5 Allergy status to narcotic agent; Q89.9 Congenital malformation, unspecified
CPT/HCPCS: 36415; 70450; 70496; 70498; 70544; 70551; 80053; 80061; 82550; 82553; 82962; 83036; 84484; 85025; 85610; 85652; 85670; 85730; 93005; 93010; 93306; 96374; G0378; A9270-GY; J1650; J2405; J2765; J7040; Q9967